=== PATIENT | male | born 1980 | race Caucasian/White ===

== ENCOUNTER 2017-04-28 18:30 | Emergency (ER) | payer OTHER ==
[~2017-04-28] VITALS: Ht 170.2 cm; Wt 85.8 kg
[2017-04-28 18:33] VITALS: Ht 170.2 cm; Wt 85.8 kg
[2017-04-28] MEDS ORDERED: ALPR1TAB3 PO (18:59)
[2017-04-28] MEDS ORDERED: OPTIRAY 320 IV PRN (19:30)
--- NOTE | 2017-04-28 19:53 | EMERGENCY ROOM VISIT NOTE ---
History Report prepared by Lili: Niru Rocha Under the Supervision of: Dr. Didier Rogers M.D. First contact with patient: 18:42 Chief Complaint: CARDIAC ASSESSMENT Stated Complaint: CHEST PAIN, SOB,NUMBNESS IN HANDS History of Present Illness The patient is a 36 year old male who presents to the Emergency Room for a cardiac assessment. The patient sates that a couple of months ago he was diagnosed with a PE. He was placed on Xarelto at that time and was taking it as prescribed until the medication ran out. He missed his follow-up appointment so he never had this medication refilled. The patient states that over the past few weeks he has developed a "weird feeling" in his chest. He was evaluated at the [facility] ER for this. He was experiencing pressure in his chest as well as bilateral hand numbness. He was diagnosed with anxiety and discharged home. The patient states that today around noon, while he was standing outside talking to a neighbor, he developed a sudden onset of chest pain and pressure. He took 2 of his mother's anxiety pills and his symptoms have improved. Source of History: patient Onset: this afternoon Position: chest Quality: pressure Timing: constant Modifying Factors (Relieving): other (anxiety medication) Review of Systems See HPI for pertinent positives & negatives. A total of 10 systems reviewed and were otherwise negative. Past Medical & Surgical Medical Problems: (1) DVT (deep venous thrombosis) (2) Neck abscess (3) No known problems Family History Hypertension Social History Smoking Status: Former Smoker Smokeless Tobacco Use: No Alcohol Use: occasionally Drug Use: other Marital Status: single Housing Status: lives with family Occupation Status: employed Current/Historical Medications Scheduled Rivaroxaban (Xarelto), 1 TAB PO DAILY Scheduled PRN Alprazolam (Xanax), 2 MG PO DIRECTED PRN for Anxiety/Agitation Allergies Coded Allergies: No Known Allergies (Unverified , 04/28/17) Physical Exam Vital Signs Date Time Temp Pulse Resp B/P (MAP) Pulse Ox O2 Delivery O2 Flow Rate FiO2 04/28/17 21:01 36.6 64 18 130/89 100 04/28/17 20:47 64 18 130/89 100 Room Air 04/28/17 19:30 Room Air 04/28/17 19:30 Room Air 04/28/17 19:25 66 18 122/99 99 Room Air 04/28/17 19:08 66 04/28/17 18:33 36.6 74 20 138/96 97 Room Air Physical Exam GENERAL: Patient is a healthy-appearing well-nourished male. HEAD: Normocephalic atraumatic EYES: Ocular movements intact pupils equal and react to light OROPHARYNX mucous membranes are moist no exudates present no erythema or edema present NECK: Supple no nuchal rigidity CHEST: Good equal expansion LUNGS: Clear and equal to auscultation CARDIAC: Normal S1 and S2 ABDOMEN: Soft nontender no guarding BACK: No CVA tenderness EXTREMITIES: No pain upon palpation normal muscle strength in all groups no clubbing cyanosis or edema NEURO: Patient is following commands and answering questions appropriately. Alert and oriented x3 Cranial Nerves 2-12 grossly intact Medical Decision & Procedures ER Provider Diagnostic Interpretation: Radiology results as stated below per my review and radiologist interpretation: CHEST CTA for PULMONARY ARTERIES CT DOSE: 421.65 mGy.cm HISTORY: Atypical chest pain. TECHNIQUE: Multiaxial CT images of the chest were performed following the intravenous administration of contrast to evaluate the pulmonary arteries. Maximal intensity projection images were also obtained. COMPARISON STUDY: Neck CTA 10/26/2016. FINDINGS: Normal caliber thoracic aorta with no evidence for dissection. Best seen on image 165 there is a tiny linear filling defect seen within the lingular segmental pulmonary artery within the left upper lobe. This is improved compared to the prior neck CTA and is consistent with resolving chronic embolus. No additional filling defects within the pulmonary arteries to suggest acute pulmonary embolus. No fractures within the visualized osseous structures. The central airways are patent. No pleural effusions. No pneumothorax. The lungs are clear. The visualized liver, spleen, and adrenal glands are unremarkable. No mediastinal or hilar lymphadenopathy. The heart is normal in size. IMPRESSION: 1. Interval improvement in the tiny linear chronic pulmonary embolus seen within the lingula. No evidence for acute pulmonary embolus. 2. No focal lung consolidations to suggest pneumonia. Electronically signed by: Ray Lutz M.D. 04/28/2017 8:30 PM Dictated Date/Time: 04/28/2017 8:21 PM Laboratory Results 04/28/17 19:50 Red Blood Count 4.17, Mean Corpuscular Volume 86.3, Mean Corpuscular Hemoglobin 29.3, Mean Corpuscular Hemoglobin Concent 33.9, Mean Platelet Volume 9.5, Neutrophils (%) (Auto) 79.2, Lymphocytes (%) (Auto) 13.5, Monocytes (%) (Auto) 6.6, Eosinophils (%) (Auto) 0.2, Basophils (%) (Auto) 0.2, Neutrophils # (Auto) 8.76, Lymphocytes # (Auto) 1.49, Monocytes # (Auto) 0.73, Eosinophils # (Auto) 0.02, Basophils # (Auto) 0.02 04/28/17 19:50 Test 04/28/17 19:50 04/28/17 20:03 White Blood Count 11.05 K/uL (4.8-10.8) Red Blood Count 4.17 M/uL (4.7-6.1) Hemoglobin 12.2 g/dL (14.0-18.0) Hematocrit 36.0 % (42-52) Mean Corpuscular Volume 86.3 fL (80-100) Mean Corpuscular Hemoglobin 29.3 pg (25-34) Mean Corpuscular Hemoglobin Concent 33.9 g/dl (32-36) Platelet Count 251 K/uL (130-400) Mean Platelet Volume 9.5 fL (7.4-10.4) Neutrophils (%) (Auto) 79.2 % Lymphocytes (%) (Auto) 13.5 % Monocytes (%) (Auto) 6.6 % Eosinophils (%) (Auto) 0.2 % Basophils (%) (Auto) 0.2 % Neutrophils # (Auto) 8.76 K/uL (1.4-6.5) Lymphocytes # (Auto) 1.49 K/uL (1.2-3.4) Monocytes # (Auto) 0.73 K/uL (0.11-0.59) Eosinophils # (Auto) 0.02 K/uL (0-0.5) Basophils # (Auto) 0.02 K/uL (0-0.2) RDW Standard Deviation 43.5 fL (36.4-46.3) RDW Coefficient of Variation 14.0 % (11.5-14.5) Immature Granulocyte % (Auto) 0.3 % Immature Granulocyte # (Auto) 0.03 K/uL (0.00-0.02) Est Creatinine Clear Calc Drug Dose 97.2 ml/min Estimated GFR () 99.6 Estimated GFR (Non- 85.9 BUN/Creatinine Ratio 16.7 (10-20) Calcium Level 8.7 mg/dl (8.5-10.1) Total Bilirubin 0.7 mg/dl (0.2-1) Direct Bilirubin 0.2 mg/dl (0-0.2) Aspartate Amino Transf (AST/SGOT) 15 U/L (15-37) Alanine Aminotransferase (ALT/SGPT) 24 U/L (12-78) Alkaline Phosphatase 55 U/L (45-117) Total Creatine Kinase 150 U/L (39-308) Creatine Kinase MB 1.6 ng/ml (0.5-3.6) Creatine Kinase MB Ratio 1.1 (0-3.0) Troponin I < 0.015 ng/ml (0-0.045) Total Protein 7.9 gm/dl (6.4-8.2) Albumin 3.9 gm/dl (3.4-5.0) Lipase 116 U/L (73-393) Bedside Hemoglobin 13.3 g/dl (14.0-18.0) Bedside Hematocrit 39 % (42-52) Bedside Sodium 137 mEq/L (135-144) Bedside Potassium 4.4 mEq/L (3.3-5.0) Bedside Chloride 100 mEq/L (101-112) Bedside Total CO2 26 mEq/l (24-31) Anion Gap 16.0 mmol/L (16-25) Bedside Blood Urea Nitrogen 22 mg/dl (7-18) Bedside Creatinine 1.0 mg/dl (0.6-1.3) Bedside Glucose (other) 102 mg/dl (70-99) Bedside Ionized Calcium (Karina) 1.21 mmol/l (1.12-1.32) Labs reviewed by ED physician. Medications Administered Medications (Trade) Dose Ordered Sig/Denise Route Start Time Stop Time Status Last Admin Dose Admin Rivaroxaban (Xarelto Tab) 20 mg DAILY STAT PO 04/28/17 20:38 04/28/17 20:39 DC 04/28/17 20:59 20 MG ECG Indication: chest pain Rate (beats per minute): 60 Rhythm: normal sinus Findings: no acute ischemic change, no ectopy ED Course 1904: Past medical records reviewed. The patient was evaluated in room C11B. A complete history and physical examination was performed. 2037: Xarelto 20 mg PO 2045: I reassessed the patient at this time. He is feeling better and resting comfortably. I discussed the results and treatment plan with the patient. I answered all pertaining questions that he had. He expressed understanding and verbalized agreement. The patient will be discharged home. Medical Decision Differential diagnosis: Etiologies such as cardiac ischemia, aortic dissection, pulmonary embolism, pneumonia, pneumothorax, musculoskeletal, infections, pericarditis, myocarditis , esophageal rupture, gastrointestinal, as well as others were entertained. Medication Reconciliation: I attest that I have personally reviewed the patient' s current medication list. Blood Pressure Screening: Patient was found to have an elevated blood pressure and was referred to their primary care doctor for recheck and further treatment. This is a 36-year-old male who presents emergency department complaining of shortness of breath. The patient was also also however he states his prescription ran out and he never got it refilled by his primary care physician because he did not follow-up with primary care physician. Based on the patient' s complaints he was sent for CAT scan of the chest. this showed the old PE and no evidence of new acute PE. The patient is afebrile here and I do believe he is well enough that he can be safely discharged home. I will continue him on several toe however I stressed to the patient he needs follow-up with his primary care physician. Patient was in agreement with the treatment plan. Impression Primary Impression: Shortness of breath Scribe Attestation The scribe's documentation has been prepared under my direction and personally reviewed by me in its entirety. I confirm that the note above accurately reflects all work, treatment, procedures, and medical decision making performed by me. Departure Information Dispostion Home / Self-Care Prescriptions Rivaroxaban (XARELTO) 20 Mg Tab 1 TAB PO DAILY for 14 Days, #14 TAB Prov: Didier Rogesr MD 04/28/17 Referrals No Doctor, Assigned (PCP) Forms IMPORTANT VISIT INFORMATION Patient Instructions My [facility] Additional Instructions Need follow up with PCP You were found to have an elevated blood pressure today (>120 sytolic or >90 diastolic). Per medicare guidelines, you need to follow up with this blood pressure screening with your Primary Care Physician (PCP). For a new PCP call [phone]. You have been examined and treated today on an emergency basis only. This is not a substitute for, or an effort to provide, complete comprehensive medical care. It is impossible to recognize and treat all injuries or illnesses in a single emergency department visit. It is therefore important that you follow up closely with your PCP. Call as soon as possible for an appointment. Thank you for your time and consideration. I look forward to speaking with you again soon. Please don't hesitate to call us if you have any questions.
[2017-04-28 20:05] LABS: BASO % 0.2 %; BASO ABS # 0.02 K/uL (0-0.2); COMPLETE YES; EOS % 0.2 %; IG% 0.3 %; LYMPH % 13.5 %; LYMPH ABS # 1.49 K/uL (1.2-3.4); MEAN CELL VOLUME 86.3 fL (80-100); MEAN CORPUSCULAR HEMOGLOBIN 29.3 pg (25-34); MEAN CORPUSCULAR HGB CONC 33.9 g/dl (32-36); MEAN PLATELET VOLUME 9.5 fL (7.4-10.4); MONO % 6.6 %; NEUT % 79.2 %; PLATELET COUNT 251 K/uL (130-400); RED BLOOD COUNT 4.17 M/uL (4.7-6.1); WHITE BLOOD COUNT 11.05 K/uL (4.8-10.8)
[2017-04-28 20:15] LABS: ISTAT HEMOGLOBIN 13.3 g/dl (14.0-18.0); ISTAT IONIZED CALCIUM 1.21 mmol/l (1.12-1.32)
--- NOTE | 2017-04-28 20:31 | DIAGNOSTIC IMAGING REPORT ---
CHEST CTA for PULMONARY ARTERIES CT DOSE: 421.65 mGy.cm HISTORY: Atypical chest pain. TECHNIQUE: Multiaxial CT images of the chest were performed following the intravenous administration of contrast to evaluate the pulmonary arteries. Maximal intensity projection images were also obtained. COMPARISON STUDY: Neck CTA 10/26/2016. FINDINGS: Normal caliber thoracic aorta with no evidence for dissection. Best seen on image 165 there is a tiny linear filling defect seen within the lingular segmental pulmonary artery within the left upper lobe. This is improved compared to the prior neck CTA and is consistent with resolving chronic embolus. No additional filling defects within the pulmonary arteries to suggest acute pulmonary embolus. No fractures within the visualized osseous structures. The central airways are patent. No pleural effusions. No pneumothorax. The lungs are clear. The visualized liver, spleen, and adrenal glands are unremarkable. No mediastinal or hilar lymphadenopathy. The heart is normal in size. IMPRESSION: 1. Interval improvement in the tiny linear chronic pulmonary embolus seen within the lingula. No evidence for acute pulmonary embolus. 2. No focal lung consolidations to suggest pneumonia. Electronically signed by: Ray Lutz M.D. 04/28/2017 8:30 PM Dictated Date/Time: 04/28/2017 8:21 PM
[2017-04-28] MEDS ORDERED: RIVAROXABAN 20 MG TAB PO STA (20:38)
[2017-04-28 20:39] LABS: ALT/SGPT 24 U/L (12-78); AST/SGOT 15 U/L (15-37); BLOOD UREA NITROGEN 18 mg/dl (7-18); BUN/CREATININE RATIO 16.7 (10-20); CALCIUM 8.7 mg/dl (8.5-10.1); CARBON DIOXIDE 26 mmol/L (21-32); CHLORIDE 104 mmol/L (98-107); GLUCOSE 98 mg/dl (70-99); POTASSIUM 4.3 mmol/L (3.5-5.1); SODIUM 137 mmol/L (136-145)
[2017-04-28 20:44] LABS: ALKALINE PHOSPHATASE 55 U/L (45-117); CKMB/CK RATIO 1.1 (0-3.0)
[2017-04-28] MEDS ORDERED: RIVA1TAB4 PO (20:52)
[2017-04-28 21:01] VITALS: BP 130/89; PULSE 64; TEMP 36.6; O2SAT 100
== END 2017-04-28 21:02 | disposition home or self-care (01) ==
LOC: C.EDB 18:31 → C.EDC 21:02
DX: R06.02 Shortness of breath (principal); R07.89 Other chest pain; Z86.718 Personal history of other venous thrombosis and embolism; Z86.19 Personal history of other infectious and parasitic diseases; Z87.891 Personal history of nicotine dependence; Z79.899 Other long term (current) drug therapy; Z82.49 Family history of ischemic heart disease and other diseases of the circulatory system

== ENCOUNTER → 2017-06-05 | Outpatient (CLI) | payer OTHER ==
[~2017-06-05] MED LIST: ALPR1TAB3 PO; RIVA1TAB4 PO
[2017-06-05 14:48] LABS: BASO % 0.2 %; BASO ABS # 0.01 K/uL (0-0.2); COMPLETE YES; EOS % 1.1 %; HEMATOCRIT 40.4 % (42-52); IG% 0.2 %; LYMPH % 40.4 %; LYMPH ABS # 2.52 K/uL (1.2-3.4); MEAN CELL VOLUME 87.1 fL (80-100); MEAN CORPUSCULAR HGB CONC 34.4 g/dl (32-36); MEAN PLATELET VOLUME 9.9 fL (7.4-10.4); MONO % 11.9 %; NEUT % 46.2 %; PLATELET COUNT 276 K/uL (130-400); RED BLOOD COUNT 4.64 M/uL (4.7-6.1); WHITE BLOOD COUNT 6.23 K/uL (4.8-10.8)
[2017-06-05 15:11] LABS: ALT/SGPT 29 U/L (12-78); BLOOD UREA NITROGEN 20 mg/dl (7-18); BUN/CREATININE RATIO 16.7 (10-20); CALCIUM 9.8 mg/dl (8.5-10.1); CARBON DIOXIDE 28 mmol/L (21-32); CHLORIDE 102 mmol/L (98-107); CHOLESTEROL 183 mg/dl (0-200); GLUCOSE 95 mg/dl (70-99); SODIUM 138 mmol/L (136-145); TRIGLYCERIDES 173 mg/dl (0-150); VERY LOW DENSITY LIPOPROT CALC 35 mg/dl
[2017-06-05 15:14] LABS: ALB/GLOB RATIO 0.9 (0.9-2); ALKALINE PHOSPHATASE 53 U/L (45-117); AST/SGOT 20 U/L (15-37); CHOLESTEROL/HDL RATIO 3.8; HDL CHOLESTEROL 48 mg/dl; LDL CHOLESTEROL CALCULATED 100 mg/dl
== END | disposition home or self-care (01) ==
LOC: C.LAB 13:51
PROVIDERS: ATTEND Physician Assistant
DX: Z00.00 Encounter for general adult medical examination without abnormal findings (principal)

== ENCOUNTER → 2017-07-24 | Outpatient (CLI) | payer OTHER ==
[2017-07-24 12:14] LABS: HEMATOCRIT 37.9 % (42-52); MEAN CELL VOLUME 86.5 fL (80-100); MEAN CORPUSCULAR HEMOGLOBIN 29.9 pg (25-34); MEAN CORPUSCULAR HGB CONC 34.6 g/dl (32-36); MEAN PLATELET VOLUME 10.2 fL (7.4-10.4); PLATELET COUNT 258 K/uL (130-400); RED BLOOD COUNT 4.38 M/uL (4.7-6.1); WHITE BLOOD COUNT 6.36 K/uL (4.8-10.8)
[2017-07-24 12:39] LABS: BLOOD UREA NITROGEN 18 mg/dl (7-18); BUN/CREATININE RATIO 16.2 (10-20); CALCIUM 9.6 mg/dl (8.5-10.1); CARBON DIOXIDE 30 mmol/L (21-32); CHLORIDE 101 mmol/L (98-107); GLUCOSE 94 mg/dl (70-99); POTASSIUM 4.2 mmol/L (3.5-5.1); SODIUM 136 mmol/L (136-145)
== END | disposition home or self-care (01) ==
LOC: C.LABPBG 10:24
PROVIDERS: ATTEND Family Medicine
DX: I10 Essential (primary) hypertension (principal); R71.0 Precipitous drop in hematocrit

== ENCOUNTER 2018-01-02 21:56 | Emergency (ER) | payer OTHER ==
[~2018-01-02] VITALS: Ht 170.2 cm; Wt 85.0 kg
[2018-01-02 22:02] VITALS: TEMP 36.7; Ht 170.2 cm; Wt 85.0 kg
--- NOTE | 2018-01-02 22:23 | EMERGENCY ROOM VISIT NOTE ---
History Report prepared by Lili: Shonna Valentin Under the Supervision of: Dr. German Cummings M.D. First contact with patient: 22:12 Chief Complaint: DIZZY Stated Complaint: DIZZY,POSSIBLE BLOOD CLOT History of Present Illness The patient is a 37 year old male who presents to the Emergency Room with complaints of constant dizziness and palpitations beginning three days ago. The patient states he "shot up tc" three days ago. He states it was a " synthetic drug" and that he used it to "get high". He denies any suicidal ideation or want to hurt himself. The patient states his heart is racing. The patient denies alcohol or drug use. The patient states "my anxiety is through the roof". The patient denies any trauma. Patient states he has been "drinking a lot of water to get the drugs out of my system". Source of History: patient Onset: three days ago Position: other (generalized) Quality: other (dizziness) Timing: constant Modifying Factors (Relieving): other (none) Review of Systems See HPI for pertinent positives and negatives. A total of ten systems were reviewed and were otherwise negative. Past Medical & Surgical Medical Problems: (1) DVT (deep venous thrombosis) (2) Neck abscess (3) No known problems Family History Hypertension Social History Smoking Status: Former Smoker Alcohol Use: occasionally Drug Use: other Marital Status: single Housing Status: lives with family Occupation Status: employed Current/Historical Medications No Active Prescriptions or Reported Meds Allergies Coded Allergies: No Known Allergies (Unverified , 01/02/18) Physical Exam Vital Signs Date Time Temp Pulse Resp B/P (MAP) Pulse Ox O2 Delivery O2 Flow Rate FiO2 01/02/18 23:05 78 18 149/80 98 01/02/18 22:02 36.7 99 16 148/90 100 Room Air Physical Exam Physical Exam GENERAL: He is oriented to person, place, and time. He appears well-developed and well-nourished. He does not appear distressed. ____ HENT: Exam performed. Head: Normocephalic and atraumatic. Right Ear: External ear normal. No mastoid tenderness. Left Ear: External ear normal. No mastoid tenderness. Mouth/Throat: The oropharynx is clear and moist. No trismus in the jaw. No dental abscesses or uvula swelling. No oropharyngeal exudate or tonsillar abscesses. ____ EYES: Conjunctivae and EOM are normal. Pupils are equal, round, and reactive to light. Right eye exhibits no discharge. Left eye exhibits no discharge. No scleral icterus. ____ NECK: Normal range of motion. Neck supple. No JVD present. No spinous process tenderness present. No carotid bruit present. No rigidity. No tracheal deviation and normal range of motion present. No Brudzinski's sign and no Kernig 's sign noted. ____ CV: Normal rate, regular rhythm, normal heart sounds and intact distal pulses. There is no peripheral edema. Palpable radial pulses bue. ____ PULM/CHEST: Effort normal and breath sounds normal. No respiratory distress. No stridor. He/She has no wheezes. He has no rales. Chest Wall: He exhibits no tenderness. ____ ABD: The abdomen is soft. Bowel sounds are normal. He has no distension. No mass is present. There is no tenderness. There is no rebound, no guarding, no Hernandez's sign and no tenderness at McBurney's point. Rovsig negative MUSC/SKEL: Normal range of motion. There is no peripheral edema, tenderness or deformity. LYMPH: No cervical adenopathy. ____ NEURO: He is alert and oriented to person, place, and time. He has normal strength. No cranial nerve deficit or sensory deficit. Coordination and gait normal. GCS eye subscore is 4. GCS verbal subscore is 5. GCS motor subscore is 6. Cerebellar tests wnl. ____ SKIN: Skin is warm and dry. He is not diaphoretic. ____ PSYCH: He has a normal mood and affect. His behavior is normal. Judgment and thought content normal. ____ Medical Decision & Procedures Laboratory Results Test 01/02/18 22:34 01/02/18 22:37 Bedside Troponin I < 0.030 ng/ml (0-0.045) Bedside Hemoglobin 13.9 g/dl (14.0-18.0) Bedside Hematocrit 41 % (42-52) Bedside Sodium 126 mEq/L (135-144) Bedside Potassium 3.5 mEq/L (3.3-5.0) Bedside Chloride 90 mEq/L (101-112) Bedside Total CO2 23 mEq/l (24-31) Anion Gap 17.0 mmol/L (16-25) Bedside Blood Urea Nitrogen 17 mg/dl (7-18) Bedside Creatinine 1.0 mg/dl (0.6-1.3) Bedside Glucose (other) 114 mg/dl (70-99) Bedside Ionized Calcium (Karina) 1.10 mmol/l (1.12-1.32) Laboratory results reviewed by me Medications Administered Medications (Trade) Dose Ordered Sig/Denise Route Start Time Stop Time Status Last Admin Dose Admin Lorazepam (Ativan Inj) 0.5 mg NOW STAT IM 01/02/18 22:29 01/02/18 22:30 DC 01/02/18 22:50 0.5 MG ECG Per My Interpretation Indication: toxicologic Rate (beats per minute): 77 Rhythm: sinus rhythm Findings: other (SD QRS and QTC within normal limits. No ST elevation or ST depression) ED Course 2213: The patient was evaluated in room C7. A complete history and physical exam was performed. 2228: Ordered Ativan Inj 0.5 mg IM. 2299: I reevaluated the patient. Discussed results and discharge instructions: He verbalized understanding and agreement. The patient is ready for discharge. Medical Decision Vitals stable, physical exam within normal limits. Patient was given 0.5 mg Ativan IM for anxiety /agitation. EKG, troponin and H& H within normal limits, metabolic profile within normal limits, except sodium of 126. Patient is asymptomatic with no neurologic dysfunction or seizures. Patient was encouraged to drink sports drinks to replace electrolytes and to stop drinking excessive amounts of water which he reports he was doing. The patient tolerated PO in the ED. DISCHARGE - Plan of care discussed with patient and questions answered. The patient was given both verbal and printed discharge instructions. The patient verbalized understanding and ability to comply. The patient is to seek outpatient follow up as noted in the discharge instructions. The patient verbalized understanding and ability to comply. The patient is discharged in stable condition. The patient was instructed to return for worsening symptoms. Medication Reconcilliation Current Medication List: was personally reviewed by me Blood Pressure Screening Patient's blood pressure: Normal blood pressure Impression Primary Impression: Drug abuse Scribe Attestation The scribe's documentation has been prepared under my direction and personally reviewed by me in its entirety. I confirm that the note above accurately reflects all work, treatment, procedures, and medical decision making performed by me. The chart was completed utilizing [employer] Speech voice recognition software. Grammatical errors, random word insertions, pronoun errors, and incomplete sentences are an occasional consequence of this system due to software limitations, ambient noise, and hardware issues. Any formal questions or concerns about the content, text, or information contained within the body of this dictation should be directly addressed to the physician for clarification. Departure Information Prescriptions No Active Prescriptions or Reported Meds Referrals No Doctor, Assigned (PCP) Patient Instructions My [facility]
[2018-01-02] MEDS ORDERED: LORAZEPAM 2 MG/ML 1 ML VIAL IM STA (22:29)
[2018-01-02 22:49] LABS: ISTAT IONIZED CALCIUM 1.1 mmol/l (1.12-1.32); ISTAT POTASSIUM 3.5 mEq/L (3.3-5.0)
[2018-01-02 23:05] VITALS: BP 149/80; PULSE 78; O2SAT 98
== END 2018-01-02 23:06 | disposition home or self-care (01) ==
LOC: C.EDB 21:58 → C.EDC 23:06
DX: Z71.51 Drug abuse counseling and surveillance of drug abuser (principal); Z82.49 Family history of ischemic heart disease and other diseases of the circulatory system; Z87.891 Personal history of nicotine dependence